=== PATIENT | male | born 1965 | race Caucasian/White ===

== ENCOUNTER 2017-02-27 12:46 | Emergency (ER) | payer OTHER ==
[~2017-02-27] VITALS: Ht 167.6 cm; Wt 129.6 kg
[~2017-02-27 12:46] MED LIST: CHOL10008 PO; IMI25 PO; LISI40TA PO; ONDA4TAB6 PO; SULF1TAB35 PO; SUMA4PEN SQ; TRAM-14 PO
[2017-02-27 12:50] VITALS: BP 148/83; PULSE 78; RESP 16; O2SAT 96
--- NOTE | 2017-02-27 14:54 | DRSVH ---
PROCEDURE: X-RAY LEFT FOOT COMPLETE, MINIMUM THREE VIEWS ([id number]) INDICATIONS: pain TECHNIQUE: 3 views of the foot were acquired. COMPARISON: None. FINDINGS: Bones: No fractures or dislocations. No suspicious bony lesions. Soft tissues: No tibiotalar joint effusion. Achilles tendon appears normal. IMPRESSION: No acute fracture. No osseous lesion. If clinical suspicion and/or symptoms persist, fur ther assessment with repeat plainfilms, or advanced imaging (e.g., CT, MRI, or bone scan) may be help ful for further assessment. Dictated by: Evangelina Henriquez M.D. on 02/27/2017 at 14:52 Approved by: Evangelina Henriquez M.D. on 02/27/2017 at 14:52
[2017-02-27 15:00] VITALS: BP 152/93; PULSE 71; O2SAT 96
[2017-02-27 15:13] LABS: BASOPHILS % (AUTO) 0.5 % (0-3); EOSINOPHILS % (AUTO) 2.6 % (0-5); MONOCYTES % (AUTO) 14.8 % (4-12); Mean Corpuscular Hemoglobin 29.9 pg (27.0-35.0); Mean Corpuscular Volume 87.2 fL (81-100); NEUTROPHILS % (AUTO) 52.8 % (40-74); Platelet Count 225 bil/L (150-400)
[2017-02-27 15:29] LABS: ERYTHROCYTE SEDIMENTATION RATE 3 mm/hr (0-30)
[2017-02-27] MEDS ORDERED: CEPH500T PO (16:11)
--- NOTE | 2017-02-27 16:11 | DRSVH ---
PROCEDURE: US EXTREMITY SONOGRAM LIMITED ([id number]) INDICATIONS: ro FB Left foot TECHNIQUE: Real-time scanning was performed of the left foot, with image documentation. COMPARISON: None. FINDINGS: Limited evaluation demonstrates no evidence of foreign body. IMPRESSION: No evidence of foreign body. Dictated by: Evangelina Henriquez M.D. on 02/27/2017 at 16:09 Approved by: Evangelina Henriquez M.D. on 02/27/2017 at 16:09
[2017-02-27] MEDS ORDERED: HYDR-4003 PO (16:12)
--- NOTE | 2017-02-27 16:25 | ED.REPORT ---
HPI-Extremity Problem Lower Date of Service February 27, 2017 ED Provider: Yoel Woodard MD A 51 year old male with a history of hypertension, UTI and anxiety presents to the ED complaining of left foot pain. The pt was seen eight weeks ago in [place] for a wound on his left foot. A splinter was removed and the pt was discharged. The wound drained a small amount of purulent material two days later but seemed to resolve after that. The pain returned two weeks later and he was seen again in the [place] ED. A CT scan and x-ray were taken and did not indicate infection. The pt was not placed on antibiotics but had minimal drainage again. The area became painful, red, and swollen again last night and these symptoms have persisted since. The pt denies fever. He has not seen a tableau report developer to address his symptoms. Nursing Notes Stated Complaint: LEFT FOOT Chief Complaint: Extremity Trauma Nursing Notes Reviewed: Yes ([employer], [address] not reconciled) Allergies: Coded Allergies: ciprofloxacin (Verified Adverse Reaction, Severe, tendinitis, 02/17/16) citalopram (Verified Adverse Reaction, Severe, burning skin and paranoia, 02/17/16) Scheduled Cephalexin (Cephalexin) 500 Mg Tablet 500 MG PO QID Lisinopril (Lisinopril) 40 Mg Tablet 40 MG PO DAILY Sulfamethoxazole/Trimeth 800-160 mg (Bactrim DS 800-160 mg) 1 Each Tablet 1 TABLET PO BID Scheduled PRN Hydrocodone-Acetaminophen 5-325 mg (Hydrocodone-Acetaminophen 5-325 mg) 1 Each Tablet 1-2 TABLET PO Q6H PRN PRN For Pain Ondansetron (Zofran) 4 Mg Tablet 4 MG PO Q4H PRN PRN For Nausea Sumatriptan (Imitrex) 25 Mg Tablet 50 MG PO PRN PRN PRN Headache Sumatriptan Succinate (Imitrex) 4 Mg/0.5 Ml Pen.injctr 4 MG SQ PRN PRN PRN For Headache MR X1 Tramadol (Ultram) 50 Mg Tablet 50 MG PO Q6 PRN PRN For Mild Pain Miscellaneous Medications Cholecalciferol (Vitamin D3) (Vitamin D3) 1,000 Unit Tab.chew 1,000 UNIT PO General Time Seen by MD: 14:28 Chief Complaint Other (Left foot pain) Hx Obtained From: Patient Arrived By: Walk-in Onset Occurred: More than a week ago... Recent Healthcare: No recent hospitalization, Recent doctor visit Similar Sx Previous: Yes Past Medical History Past Medical History Sigmoid diverticulitis February 2015 H/o "prostatic urethral lesions" by Dr. Cristina, surgery on 06/05/2014, Lesions were negative for malignancy h/o Prostatitis treated with prolonged course of antibiotics history of sepsis and pyuria with hospital admission in 2013 Reports: Hypertension Reports: Depression, Migraines Past Surgical History C5 C7 Disk replacement Wrist surgery L shoulder Right shoulder Ankle surg Cystoscopy hernia surgery Reports: Knee replacement Family History Negative family history specifically denies inflammatory bowel disease in family Other family members are not sick. no other diarrheal illness in immediate family Smoking History Never Smoker Social History Alcohol Use: "Social" Drug Use: Denies drug use Other Social History: Good social support, Local resident Occupation mechanic driver Ambulatory Status Independent Review of Systems Review of Systems Note: area of left foot swollen and red intermittent discharge from left foot Constitutional: Denies: Fever Musculoskeletal: Reports: Extremity pain (left foot), Denies: Back pain Skin: Denies Rash Complete sys rev & neg: except as marked. Respiratory: Denies: Non-productive cough, Shortness of breath Physical Exam Initial Vital Signs Vital Signs (First) Date Time Temp Pulse Resp B/P Pulse Ox O2 Delivery O2 Flow Rate FiO2 02/27/17 12:50 36.4 78 16 148/83 96 Room Air Initial VS: Reviewed, Vital signs normal Lower Extremity / Pelvis / MS: Atraumatic, Full range of motion Ankle / Foot: Full range of motion small punctate area of healed wound no redness, swelling, fluctuance, warmth, or palpable foreign body strong PT pulses no purulence or clinical findings of infection General/Constitutional: Awake, Alert Respiratory / Chest: Atraumatic, Breath sounds NL, Breath sounds = bilat, No respiratory distress Cardiovascular: Heart rate NL, Regular rhythm, Heart sounds NL Skin: Color NL, Warm, Dry Neurologic: Oriented X3, Speech NL, No motor deficits, No sensory deficits Head / Eyes: Atraumatic, Normocephalic, PERRL, EOMI ENT: Atraumatic, Airway patent, Mucous membranes moist Neck: Atraumatic, Supple, Full range of motion Abdomen: Atraumatic, Soft, Non-tender Back: Atraumatic, Full range of motion Upper Extremity / MS: Atraumatic, Full range of motion Psychiatric: Affect NL, Mood NL Interpretation & Diagnostics Interpretation & Diagnostics: US Extremity Sonogram: IMPRESSION: No evidence of foreign body. Dictated by: Evangelina Henriquez M.D. on 02/27/2017 at 16:09 Approved by: Evangelina Henriquez M.D. on 02/27/2017 at 16:09 Lab Results Interpretation Result Diagram: 02/27/17 1505 02/27/17 1505 Test 02/27/17 15:05 White Blood Count 5.9th/mm3 (3.8-10.1) Red Blood Count 5.15mil/mm3 (4.40-5.80) Hemoglobin 15.4g/dL (13.8-17.2) Hematocrit 44.9% (41.0-50.0) Mean Corpuscular Volume 87.2fL (81-100) Mean Corpuscular Hemoglobin 29.9pg (27.0-35.0) Mean Corpuscular Hemoglobin Concent 34.3% (32.0-37.0) Red Cell Distribution Width 14.0% (12.3-15.4) Platelet Count 225bil/L (150-400) Neutrophils (%) (Auto) 52.8% (40-74) Lymphocytes (%) (Auto) 29.0% (14-46) Monocytes (%) (Auto) 14.8% (4-12) Eosinophils (%) (Auto) 2.6% (0-5) Basophils (%) (Auto) 0.5% (0-3) Erythrocyte Sedimentation Rate 3mm/hr (0-30) Sodium Level 139mEq/L (134-144) Potassium Level 3.8mEq/L (3.5-5.2) Chloride Level 104mEq/L (97-108) Carbon Dioxide Level 21mmol/L (18-29) Blood Urea Nitrogen 25mg/dL (6-24) Creatinine 0.71mg/dL (0.76-1.27) Estimat Glomerular Filtration Rate 124mL/min (>59) Glucose Level 107mg/dL (60-99) Lactic Acid Level 1.2mmol/L (0.4-2.0) Calcium Level 9.1mg/dL (8.5-10.1) Total Bilirubin 0.3mg/dL (0.0-1.2) Aspartate Amino Transf (AST/SGOT) 27U/L (0-50) Alanine Aminotransferase (ALT/SGPT) 41U/L (0-44) Alkaline Phosphatase 58U/L (25-150) Total Protein 6.4g/dL (6.4-8.4) Albumin 3.6g/dL (3.4-5.0) Lab Results Interpretation: CBC normal CMP normal X-Ray Interpretation Xray Interpretation: IMPRESSION: No acute fracture. No osseous lesion. If clinical suspicion and/or symptoms persist, further assessment with repeat plainfilms, or advanced imaging (e.g., CT, MRI, or bone scan) may be helpful for further assessment. Dictated by: Evangelina Henriquez M.D. on 02/27/2017 at 14:52 Approved by: Evangelina Henriquez M.D. on 02/27/2017 at 14:52 X-Ray Ordered: Foot left Interpretation / Wet Read by: Interpret - Radiologist Re-Eval/Medical Decision Med Decision/Clinical Course This is a 51-year-old generally healthy male who is not diabetic and presents with a complaint that sounds like a developing an infection of the left foot. He reports that in January he developed foot pain and was seen at [facility], or spots that are retained foreign body that was then removed by incision and drainage. He then had some continued pain and return where he had CT imaging of the foot that was negative for foreign body or inflammation. He reports things got better. However he then states that on he expressed a small amount of purulence from this otherwise healing wound but was doing okay, and then last night it started to hurt more and became increasingly uncomfortable to return to the emergency room today. He denies fevers chills or systemic symptoms. On exam however while he described signs and sounds certainly suspicious for developing infection in her retained foreign body-is physical exam is quite reassuring and disproportionately benign. The wound where he had the initial incision is mostly healed, there is no erythema, no warmth, reports mild tenderness. There is no fluctuance I do not appreciate overt signs of foreign body. The foot is neurovascularly intact and the rest of exam is normal. Labs were obtained and were normal. Cultures were initially ordered, but subsequent canceled given is not a diabetic, not febrile. Plain radiographs are obtained were negative, and an ultrasound was obtained and no foreign body, or inflammatory changes or abscess were evident. Overall the patient with foot pain and a history strongly concerning for an infection, but what I see in the emergency department is a physical exam and laboratory and radiographic findings that are not demonstrating clear signs of a retained foreign body or abscess. So discussed the case with psychiatry. At this point given the patient's benign appearance the plan is empiric oral antibiotics with cephalexin, and close follow-up with tableau report developer to see how he is responding. Patient is discharged from a course of cephalexin and return precautions reviewed. Source of Hx: Old records Re-Evaluation/Progress : Time of Eval: 16:22 Patient Status: Condition improved Re-Evaluation/Progress Note: Pt rechecked, who is comfortable. The diagnosis and plan for discharge are discussed. The pt understands and agrees with the plan. All questions are addressed at this time. Consultation : Referral / Consult Name: Juan Ramon Anderson DPM Call Returned at: 15:55 Sequins Stringer: Agrees with eval, Agrees with plan Note: [facility] regarding pt's case. Dr. Anderson agrees with the evaluation and plan. Counseled Regarding: Diagnosis, Lab results, Need for follow-up, When/why to return to ED Discharge & Departure Impression: Primary Impression: Left foot pain Disposition: Home Discharge Condition All VS Reviewed: Yes Condition: Stable Additional Instructions: 1. The exact cause of the left foot pain remains a bit unclear. Your symptoms and history are extremely concerning for the possibility of a remaining, or recurrent, infection and/or foreign body. 2. However on your examine the emergency department-there are no visible or palpable hard signs of infection. The ultrasound did not reveal any radiographic findings of either infection, abscess, or retained foreign body. Your blood work was normal. 3. At this point, based on your symptoms which are highly concerning, the plan is empiric treatment with some antibiotics. Take cephalexin 500 mg 4 times a day for the next 7 days. 4. I have discussed your case with the tableau report developer, and want to call the office tomorrow to schedule appointment for recheck this week. We want to see how he responded to the antibiotics as part of helping the side where additional evaluation or management baby warranted. 5. She developed fever, increasing redness, swelling, pain or drainage-return to the emergency department. Referrals: Juan Ramon Anderson DPM 3 to 4 Days Scribe Attestation Portions of this note were transcribed by Chloe Preston. I, Dr. Woodard personally performed the history, physical exam and medical decision-making; I reviewed and confirmed the accuracy of the information in the transcribed note. Signed by: Tunde Gatica, 02/27/2017 and 1713. copies to: Juan Ramon Anderson DPM, Matthew F MD February 27, 2017 16:25 CHLOE PRESTON February 27, 2017 16:34
[2017-02-27 17:17] VITALS: BP 158/94; PULSE 72; O2SAT 95
== END 2017-02-27 17:18 | disposition home or self-care (01) ==
LOC: SED 12:46
DX: M79.672 Pain in left foot (principal); W45.8XXA Other foreign body or object entering through skin, initial encounter; Y92.9 Unspecified place or not applicable; Y93.89 Activity, other specified; Y99.8 Other external cause status; I10 Essential (primary) hypertension; F32.9 Major depressive disorder, single episode, unspecified; G43.909 Migraine, unspecified, not intractable, without status migrainosus; F41.9 Anxiety disorder, unspecified; Z87.440 Personal history of urinary (tract) infections; Z88.1 Allergy status to other antibiotic agents; Z88.8 Allergy status to other drugs, medicaments and biological substances

== ENCOUNTER 2017-03-22 10:00 | Inpatient (IN) | payer OTHER ==
[~2017-03-22] VITALS: Ht 167.6 cm; Wt 130.1 kg
[~2017-03-22 10:00] MED LIST changes: +CEPH500T PO; +HYDR-4003 PO
[2017-03-22 10:03] VITALS: BP 129/83; PULSE 110; RESP 22; O2SAT 99
--- NOTE | 2017-03-22 10:21 | ED.REPORT ---
HPI-General Illness Date of Service March 22, 2017 ED Provider: Shaun Troncoso DO Patient is a 51 year old male with a history of hypertension, prostatitis, cystitis and sepsis who presents to the ED complaining of chest pain onset this morning. Associated symptoms include body aches, subjective fever, chills, flank pain and increased urinary frequency but with decreased output. He denies dysuria, rectal bleeding, diaphoresis, cough and incontinence. Patient describes the pain as a "burning through his chest and lungs". Nursing Notes Stated Complaint: CHEST/BODY PAIN Chief Complaint: General Complaint Nursing Notes Reviewed: Yes Allergies: Coded Allergies: ciprofloxacin (Verified Adverse Reaction, Severe, tendinitis, 02/17/16) citalopram (Verified Adverse Reaction, Severe, burning skin and paranoia, 02/17/16) Scheduled Cephalexin (Cephalexin) 500 Mg Tablet 500 MG PO QID Lisinopril (Lisinopril) 40 Mg Tablet 40 MG PO DAILY Sulfamethoxazole/Trimeth 800-160 mg (Bactrim DS 800-160 mg) 1 Each Tablet 1 TABLET PO BID Scheduled PRN Hydrocodone-Acetaminophen 5-325 mg (Hydrocodone-Acetaminophen 5-325 mg) 1 Each Tablet 1-2 TABLET PO Q6H PRN PRN For Pain Ondansetron (Zofran) 4 Mg Tablet 4 MG PO Q4H PRN PRN For Nausea Sumatriptan (Imitrex) 25 Mg Tablet 50 MG PO PRN PRN PRN Headache Sumatriptan Succinate (Imitrex) 4 Mg/0.5 Ml Pen.injctr 4 MG SQ PRN PRN PRN For Headache MR X1 Tramadol (Ultram) 50 Mg Tablet 50 MG PO Q6 PRN PRN For Mild Pain Miscellaneous Medications Cholecalciferol (Vitamin D3) (Vitamin D3) 1,000 Unit Tab.chew 1,000 UNIT PO General Time Seen by MD: 10:20 Chief Complaint Chest pain Hx Obtained From: Patient Sudden in Onset?: Yes Onset Occurred: 1 - 4 hours ago Symptom Duration: Since onset Location: : Chest Quality: Burning Radiation: : Does not radiate Recent Healthcare: No recent hospitalization, Recent doctor visit Similar Sx Previous: No Past Medical History Past Medical History Sigmoid diverticulitis February 2015 H/o "prostatic urethral lesions" by Dr. Cristina, surgery on 06/05/2014, Lesions were negative for malignancy h/o Prostatitis treated with prolonged course of antibiotics history of sepsis and pyuria with hospital admission in 2014 Reports: Hypertension Reports: Depression, Migraines Past Surgical History C5 C7 Disk replacement Wrist surgery L shoulder Right shoulder Ankle surg Cystoscopy hernia surgery Reports: Knee replacement Family History Negative family history specifically denies inflammatory bowel disease in family Other family members are not sick. no other diarrheal illness in immediate family Smoking History Never Smoker Social History Alcohol Use: "Social" Drug Use: Denies drug use Other Social History: Good social support, , Local resident Occupation boom truck driver Ambulatory Status Independent Review of Systems Full Review of Systems Constitutional: Reports: Chills, Fever (subjective) Respiratory: Denies: Non-productive cough, Shortness of breath Cardiovascular: Reports: Chest pain Male: Reports Flank pain, Reports Urinary frequency, Reports Urination decreased, Denies Incontinence Musculoskeletal: Reports: Joint pain Complete sys rev & neg: except as marked. Physical Exam Vital Signs Vital Signs Date Time Temp Pulse Resp B/P Pulse Ox O2 Delivery O2 Flow Rate FiO2 03/22/17 12:08 37.8 92 22 122/74 95 Room Air 03/22/17 10:03 36.6 110 22 129/83 99 Initial VS: Reviewed General/Constitutional: Awake, Alert Distress / Hydration: Positive: Distress moderate Appearance / Presentation: Positive: Obese Head / Eyes: Atraumatic, Normocephalic, PERRL, EOMI Respiratory / Chest: Atraumatic, Breath sounds NL, Breath sounds = bilat, No respiratory distress Cardiovascular: Regular rhythm, Heart sounds NL Heart Rate / Rhythm: Positive: Tachycardia Abdomen: Atraumatic, Soft, Non-tender BACK: bilateral CVA tenderness Upper Extremities Upper Extremity / MS: Atraumatic, Full range of motion Skin: Atraumatic, Color NL, No rash, Warm, Dry Neurologic: Oriented X3, Speech NL, No motor deficits, No sensory deficits Psychiatric: Affect NL, Mood NL Interpretation & Diagnostics Lab Results Interpretation Result Diagram: 03/22/17 1055 03/22/17 1055 Test 03/22/17 10:07 03/22/17 10:55 Urine Color Straw (YELLOW) Urine Appearance Slightly cloudy Urine pH 6.5 (5.0-8.0) Urine Specific [place] 1.015 (1.003-1.035) Urine Protein Negativemg/dL (NEG,TRACE) Urine Glucose (UA) Negativemg/dL (NEGATIVE) Urine Ketones Negativemg/dL (NEGATIVE) Urine Occult Blood Moderate (NEGATIVE) Urine Nitrite Negative (NEGATIVE) Urine Bilirubin Negative (NEGATIVE) Urine Urobilinogen Normalmg/dL (NORMAL) Urine Leukocyte Esterase Moderate (NEGATIVE) Urine RBC 11-50/hpf (0-2) Urine WBC 11-50/hpf (0-5) Urine Epithelial Cells Occasional/hpf (NONE-MOD) Urine Crystals None seen (NONE SEEN) Urine Bacteria Few/hpf (NONE-FEW) Urine Hyaline Casts None/lpf (NONE) Urine Granular Casts None seen (NONE SEEN) Urine Waxy Casts None seen (NONE SEEN) Urine Red Blood Cell Casts None seen (NONE SEEN) Urine White Blood Cell Casts None seen (NONE SEEN) Urine Mucus None seen (None Seen) Urine Trichomonas None seen (NONE SEEN) Urine Yeast None (NONE SEEN) Urinalysis Comment None Urine Culture Reflexed Indicated White Blood Count 17.9th/mm3 (3.8-10.1) Red Blood Count 5.40mil/mm3 (4.40-5.80) Hemoglobin 16.0g/dL (13.8-17.2) Hematocrit 46.9% (41.0-50.0) Mean Corpuscular Volume 86.9fL (81-100) Mean Corpuscular Hemoglobin 29.6pg (27.0-35.0) Mean Corpuscular Hemoglobin Concent 34.1% (32.0-37.0) Red Cell Distribution Width 13.7% (12.3-15.4) Platelet Count 205bil/L (150-400) Neutrophils (%) (Auto) 87.3% (40-74) Lymphocytes (%) (Auto) 4.3% (14-46) Monocytes (%) (Auto) 7.6% (4-12) Eosinophils (%) (Auto) 0.4% (0-5) Basophils (%) (Auto) 0.1% (0-3) Sodium Level 139mEq/L (134-144) Potassium Level 4.6mEq/L (3.5-5.2) Chloride Level 102mEq/L (97-108) Carbon Dioxide Level 19mmol/L (18-29) Blood Urea Nitrogen 18mg/dL (6-24) Creatinine 0.89mg/dL (0.76-1.27) Estimat Glomerular Filtration Rate 95mL/min (>59) Glucose Level 104mg/dL (60-99) Lactic Acid Level 1.9mmol/L (0.4-2.0) Calcium Level 9.4mg/dL (8.5-10.1) Magnesium Level 1.8mg/dL (1.6-2.6) Total Bilirubin 0.7mg/dL (0.0-1.2) Aspartate Amino Transf (AST/SGOT) 26U/L (0-50) Alanine Aminotransferase (ALT/SGPT) 37U/L (0-44) Alkaline Phosphatase 64U/L (25-150) Troponin T 0.010ug/L (0.0-0.011) Total Protein 7.1g/dL (6.4-8.4) Albumin 3.9g/dL (3.4-5.0) Procalcitonin 0.07ng/mL (0.00-0.08) ECG Interpretation ECG Interpretation: sinus tachycardia, rate 100 Time: 10:48 Interpreted by: ED physician Re-Eval/Medical Decision Med Decision/Clinical Course Sepsis and UTI likely due to prostatitis. IV Rocephin given. Patient will be admitted. Source of Hx: Old records Time of Eval: 10:51 Re-Evaluation/Progress Note: Discussed lab results and plan for further treatment. Time of Eval: 11:25 Re-Evaluation/Progress Note: Discussed plan for admit. The patient understands and agrees to the plan for admit. All questions were addressed. Consultation : Referral / Consult Name: Radha Lowery MD Consulted With: Hospitalist Call Returned at: 12:13 Neonatal Specialist: Agrees with eval, Agrees with plan, Accepts admit Counseled Regarding: Diagnosis, Lab results, Need for admission Discharge & Departure Primary Impression: Sepsis Sepsis type: sepsis due to unspecified organism Qualified Code: A41.9 - Sepsis, unspecified organism Additional Impressions: Prostatitis Prostatitis type: unspecified Qualified Code: N41.9 - Inflammatory disease of prostate, unspecified UTI (urinary tract infection) Urinary tract infection type: site unspecified Hematuria presence: without hematuria Qualified Code: N39.0 - Urinary tract infection, site not specified Disposition: ADMITTED TO HOSPITAL Discharge Condition All VS Reviewed: Yes Condition: Stable Referrals: Aranza Durham MD (PCP) Tunde Attestation Portions of this note were transcribed by Dee Lennon. I, Dr. Bhargav Beatty personally performed the history, physical exam and medical decision-making; I reviewed and confirmed the accuracy of the information in the transcribed note. Signed by: Tunde Vargas, 03/22/17 and 1130 copies to: Aranza Durham MD, Timothy S DO March 22, 2017 10:21 Jackie Lennon March 22, 2017 10:34
[2017-03-22] MEDS ORDERED: 0.9% Sodium Chloride 1,000 ML IV ONE (10:27)
[2017-03-22] MEDS ORDERED: 0.9% Sodium Chloride 1,000 ML IV PRN (10:27)
[2017-03-22 10:38] LABS: APPEARANCE,URINE SLIGHTLY CLOUDY (CLEAR,HAZY); COLOR,URINE STRAW (YELLOW); PH,URINE 6.5 (5.0-8.0)
[2017-03-22 10:39] LABS: OCCULT BLOOD,URINE MODERATE (NEGATIVE); UROBILINOGEN,URINE NORMAL (NORMAL)
[2017-03-22] MEDS ORDERED: cefTRIAXone Inj 2,000 MG in Dextrose 5% Minibag Plus 50 ML IV ONE (10:45)
[2017-03-22 11:08] LABS: BASOPHILS % (AUTO) 0.1 % (0-3); EOSINOPHILS % (AUTO) 0.4 % (0-5); MONOCYTES % (AUTO) 7.6 % (4-12); Mean Corpuscular Hemoglobin 29.6 pg (27.0-35.0); Mean Corpuscular Volume 86.9 fL (81-100); NEUTROPHILS % (AUTO) 87.3 % (40-74); Platelet Count 205 bil/L (150-400)
[2017-03-22] MEDS ORDERED: Ondansetron 2 mg/mL 2 mL Inj IVPUSH PRN ×3 (11:15→14:15)
[2017-03-22 11:57] LABS: TROPONIN T 0.01 ug/L (0.0-0.011)
[2017-03-22 12:08] VITALS: BP 122/74; PULSE 92; RESP 22; O2SAT 95
[2017-03-22 12:08] LABS: Magnesium 1.8 mg/dL (1.6-2.6)
[2017-03-22] MEDS ORDERED: 0.9% Sodium Chloride 1,000 ML IV SCH (12:30)
[2017-03-22] MEDS ORDERED: Alum-Mag Hydrox-Simeth 30 mL Suspension PO PRN ×2 (12:30→14:15)
--- NOTE | 2017-03-22 13:00 | NUR ---
PVR Bladder scan revealed 100mL. Pt denies discomfort during exam. Resting comfortably. Addendum: 03/22/17 at 1803 by FARNAZ LR RN 2nd PVR checked @ 1800, 120mL remaining.
[2017-03-22 13:15] VITALS: BP 136/85; PULSE 96; RESP 17; O2SAT 92
--- NOTE | 2017-03-22 14:10 | NUR ---
[place] [facility] [id number] A&O pt arrived on wc at 1215. IVF infusing. Pt c/o pain-MD to see pt still. Admit to be complete by primary RN. at bedside. Pt oriented to room and facility. Denies having questions. VSS. Bed in low position, upper rails up, call light in reach. Will continue to monitor.
[2017-03-22] MEDS ORDERED: Polyethylene Glycol (PEG) 17 Gm Powder PO PRN (14:15)
--- NOTE | 2017-03-22 14:31 | PCM.HPMED ---
Subjective Date of Service March 22, 2017 Primary Provider: Admitting Physician: Radha Lowery MD Primary Care Physician: Aranza Durham MD Attending Physician: Radha Lowery MD Chief Complaint: Hurt all over History of Present Illness: Yesterday he felt fine. During the night he had to get up 3 or 4 times to urinate instead of once or twice but did not note dysuria. This morning when he awoke he hurt all over. Even though the skin of his face and body was hot she felt cold but did not take his temperature. He also notes burning chest which feels like something is pressing on it. This was present when he awoke. It is worse in the right lateral chest with deep breaths and it is better when he lays on his left side. He also has mild generalized headache, which is not his migraine, and feels slightly lightheaded. He was hospitalized in July 2016 for Escherichia coli UTI, sensitive to all but ampicillin. PSA was elevated at that time and he says he has seen a urologist twice since then, apparently Dr. Ortiz, and his PSA went back to normal. He is due soon for a another urology follow-up. Review of Systems: Complete review of systems is unremarkable except as in history of present illness Allergies Coded Allergies: ciprofloxacin (Verified Adverse Reaction, Severe, tendinitis, 02/17/16) citalopram (Verified Adverse Reaction, Severe, burning skin and paranoia, 02/17/16) Home Medications Lisinopril 40 qd Vit D3 1000 BID imitrex injection prn and also some other oral prn migraine med - hasn't needed either for about a year PMH Hypertension Migraines Depression which she says is occasional Sigmoid diverticulitis in February 2015 UTI in July 2016 felt related to prostatitis Urology evaluation in 2013 revealed "prostatic urethral lesions" and some inflammatory bladder changes Nephrolithiasis Surgical History C5 to C7 disc surgery Wrist surgery bilateral carpal tunnel release Bilateral shoulder surgery Ankle surgery Cystoscopy as noted above Hernia surgery knee replacement Family History Says his parents and all siblings have hypertension. Mother had "open heart surgery" twice and at age 76 although he is not sure of the cause. He was estranged from his father and not sure of his cause of . Social History Hx Alcohol Use: Yes (very occasionally) Hx Substance Use: No Hx Tobacco Use: No Smoking Status: Never Smoker Additional Information Lives with his , 26 years Exam Vital Signs Vital Sign - Last Date Time Temp Pulse Resp B/P Pulse Ox O2 Delivery O2 Flow Rate FiO2 03/22/17 13:03 37.8 92 22 122/74 95 Room Air Exam General: Alert and oriented, no acute distress HEENT: Unremarkable Neck: Thick but no apparent JVD Heart: Regular Lungs: Clear Abdomen: Soft, bowel sounds present, mild right upper quadrant tenderness Back: Mild tenderness across mid back, not clearly CVA tenderness Extremities: No pedal edema Neuro: No apparent deficit Lab and Diagnostics Result Diagram: 03/22/17 1055 03/22/17 1055 Assessment & Plan # UTI, possibly related to prostatitis as it was in the past - Ceftriaxone IV pending urine culture results - IV fluid with normal saline - Renal ultrasound - PSA - Check postvoid residual - discussed with urology, as long as he improves as expected with antibiotics Dr. Cristina feels it would be more beneficial to do an outpatient follow-up about a week after discharge than to do a hospital consultation # Hypertension - Blood pressure stable, okay to continue lisinopril Radha Lowery MD March 22, 2017 14:31
[2017-03-22] MEDS: HYDROcodone-APAP 5-325 mg Tablet PO PRN ×2 (14:51→20:23)
[2017-03-22] MEDS: 0.9% Sodium Chloride 1,000 ML IV SCH ×2 (15:17→20:23)
[2017-03-22] MEDS ORDERED: HYDROmorphone 1 mg/mL Inj IVPUSH PRN (16:25)
[2017-03-22 17:26] VITALS: BP 120/69; PULSE 94; RESP 17; O2SAT 92
[2017-03-22] MEDS ORDERED: _HYDROcodone/APAP 5-325 mg Tablet PO PRN (18:15)
[2017-03-22 21:52] VITALS: BP 123/72; PULSE 79; RESP 18; O2SAT 95
--- NOTE | 2017-03-23 04:39 | NUR ---
Pain: Pt c/o RENAE 04/02, medication administered; effective. Pt denies any other pain and SOB. brought Cpap in, pt using along with cont pulse ox due to pt receiving narcotics with MIO. Pt slept most of the night, pleasant and cooperative with care.
[2017-03-23 05:28] VITALS: BP 123/70; PULSE 60; RESP 20; O2SAT 96
[2017-03-23] MEDS: HYDROcodone-APAP 5-325 mg Tablet PO PRN ×2 (06:43→12:03)
[2017-03-23] MEDS: 0.9% Sodium Chloride 1,000 ML IV SCH (06:43)
[2017-03-23] MEDS: Lisinopril 40 Tablet PO SCH (07:48)
[2017-03-23] MEDS: cefTRIAXone Inj 2,000 MG in Dextrose 5% Minibag Plus 50 ML IV SCH (07:49)
--- NOTE | 2017-03-23 11:13 | DRSVH ---
PROCEDURE: US RENAL SONOGRAM INDICATIONS: uti, hx nephrolithiasis TECHNIQUE: Real-time scanning was performed of the kidneys and bladder, with image documentation. COMPARISON: [facility], CT, CT KUB, 07/28/2016, 20:47. [facility], US, US R ENAL, 07/29/2016, 9:40. FINDINGS: Kidneys: Kidneys are normal in size. Right kidney measures 11.3 cm long; left kidney measures 12.3 cm long. Right renal cortical thickness is 1.7 cm; left renal cortical thickness is 1.8 cm. Renal c ortical echotexture is normal. No hydronephrosis or nephrolithiasis. No suspicious solid mass lesio ns. Complex cyst involving the midpole posteriorly no significant change measure 1.8 x 1.6 x 1.6 cm. Complex cyst also seen involving the superior pole of the left kidney measuring 2.0 x 1.5 x 1.6 cm. Bladder: Pre-void bladder volume is 155 mL. Post-void residual is 14 mL. Pre-void images demonstra te no intraluminal masses or stones. On pre-void images, bilateral ureteral jets are noted with colo r Doppler interrogation. (Of note, ureteral jets may not be detectable in up to 25% of cases due to insufficient differences in specific gravity between ureteral and bladder urine). Miscellaneous: No free pelvic fluid. IMPRESSION: 1. 2 complex cysts involving the left kidney (Bosnial 2f), of which the midpole cyst is not significa ntly changed from prior examination and the superior pole cyst appears new from prior exam. Recommen d continued sonographic surveillance. Dictated by: Darrell JAMES Interpreted: Oliver Garzon MD on 03/23/2017 at 11:10 Transcribed by: NANCY on 03/23/2017 at 11:13 Approved by: Oliver Garzon M.D. on 03/23/2017 at 16:21
--- NOTE | 2017-03-23 12:06 | PCM.PNMED ---
Subjective Date of Service March 23, 2017 Subjective Still total body aches although some improved, also still some mild generalized headache. Exam Vital Signs Vital Sign - Last Date Time Temp Pulse Resp B/P Pulse Ox O2 Delivery O2 Flow Rate FiO2 03/23/17 08:53 CPAP/BIPAP 03/23/17 05:28 37.9 60 20 123/70 96 Intake and Output 03/22/17 03/22/17 03/23/17 Cumulative From/Thru 15:00 23:00 07:00 03/22/17 10:03 - 03/23/17 06:55 Intake Total 1167 ml 1382 ml 2549 ml Output Total 655 ml 1200 ml 575 ml 2430 ml Balance -655 ml -33 ml 807 ml 119 ml Intake Oral 640 ml 200 ml 840 ml IV Total 527 ml 1182 ml 1709 ml Output Urine Total 655 ml 1200 ml 575 ml 2430 ml # Voids 5 5 # Bowel Movements 0 0 Exam General: Alert and oriented, no acute distress Heart: Regular Lungs: Clear Abdomen: Soft, non-tender Extremities: No pedal edema IVs and Medications Medications Reviewed: Medications were reviewed in detail Lab and Diagnostics Result Diagram: 03/22/17 1055 03/22/17 1055 Assessment & Plan 51 yo male with past hx sepsis from UTI presented to the ED with total body pain , found to be febrile with leukocytosis and UA suggesting UTI # UTI, possibly related to prostatitis as it was in the past - Ceftriaxone IV pending urine culture results (prelim with 50-100 K e coli) - Will DC IVF - Renal ultrasound - with 2 complex cysts (one new, one stable) - continued u/s surveillance recommended, advised pt of this - PSA normal - postvoid residual by bladder scan reported to be 100 cc (and then 14 during renal u/s) - discussed with urology, as long as he improves as expected with antibiotics Dr. Cristina feels it would be more beneficial to do an outpatient follow-up about a week after discharge than to do a hospital consultation (he already sees this urology group and had just gotten a letter that he was due for follow up) # Hypertension - Blood pressure stable, okay to continue lisinopril VTE Mechanical Devices: Venous Foot Pump Radha Lowery MD March 23, 2017 12:06
--- NOTE | 2017-03-23 13:04 | NUR ---
Social Work-screening: Data:EMR Reviewed. Pt is a 51 y/o male who was admitted on 03/22/17 for sepsis per H&P. Pt's insurance is [employer] and PCP is Aranza Durham MD. EMR reviewed. Pt's readmission score is 1. SW met with pt to discuss discharge planning, SW role explained. Pt resides at home with his in [place] where he remains independent with ADLs. Pt drives and does not use any DME. Pt confirms he has completed DPOA/ advanced directive, SW encouraged a copy to be brought in. Pt's to provide transport home when medically stable. No anticipated discharge needs. SW will continue to follow if needs arise. Assessment:Pt who is independent at baseline. Plan:Pt to discharge home when medically stable via POV. No anticipated discharge needs. SW will continue to follow if needs arise. LIZETH Hsu
[2017-03-23 13:36] VITALS: BP 131/71; PULSE 69; RESP 18; O2SAT 97
--- NOTE | 2017-03-23 15:31 | NUR ---
Pain/mobility pt c/o headache earlier in shift, vicodin effective for pain relief. Indep in room. Reports possible DC tomorrow. Addendum: 03/23/17 at 1655 by MARNI BOONE RN pt c/o low back pain. Notified has rx he can take, doesn't want any at this time. Enc to ambulate in amaro several times, states when comes will do this. Addendum: 03/23/17 at 1744 by MARNI BOONE RN Pt ambulated loop of [facility], reported initial weakness but tolerated ok. tramadol given for low back pain.
[2017-03-23 21:09] VITALS: BP 129/79; PULSE 67; RESP 18; O2SAT 93
[2017-03-24 04:08] VITALS: BP 113/70; PULSE 65; RESP 18; O2SAT 98
[2017-03-24] MEDS: Lisinopril 40 Tablet PO SCH (08:22)
[2017-03-24] MEDS: cefTRIAXone Inj 2,000 MG in Dextrose 5% Minibag Plus 50 ML IV SCH (08:22)
[2017-03-24 08:54] LABS: BASOPHILS % (AUTO) 0.3 % (0-3); EOSINOPHILS % (AUTO) 2.4 % (0-5); MONOCYTES % (AUTO) 9.9 % (4-12); Mean Corpuscular Volume 87.2 fL (81-100); NEUTROPHILS % (AUTO) 69.8 % (40-74); Platelet Count 190 bil/L (150-400)
--- NOTE | 2017-03-24 12:26 | PCM.DC.MED ---
Discharge Summary Date of Service Mar 24, 2017 Dates of Hospitalization Date of Hospital Admission March 22, 2017 at 12:29 Date of Discharge: Mar 24, 2017 Providers: Admitting Physician: Radha Lowery MD Primary Care Physician: Aranza Durham MD Attending Physician: Radha Lowery MD Diagnosis at Time of Discharge Diagnosis at Time of Discharge # UTI, Recurrent # Complex renal cysts # Hypertension Procedures Other Diagnostics PROCEDURE: US RENAL SONOGRAM INDICATIONS: uti, hx nephrolithiasis TECHNIQUE: Real-time scanning was performed of the kidneys and bladder, with image documentation. COMPARISON: [facility], CT, CT KUB, 07/28/2016, 20:47. [facility], US, US RENAL, 07/29/2016, 9:40. FINDINGS: Kidneys: Kidneys are normal in size. Right kidney measures 11.3 cm long; left kidney measures 12.3 cm long. Right renal cortical thickness is 1.7 cm; left renal cortical thickness is 1.8 cm. Renal cortical echotexture is normal. No hydronephrosis or nephrolithiasis. No suspicious solid mass lesions. Complex cyst involving the midpole posteriorly no significant change measure 1.8 x 1.6 x 1.6 cm. Complex cyst also seen involving the superior pole of the left kidney measuring 2.0 x 1.5 x 1.6 cm. Bladder: Pre-void bladder volume is 155 mL. Post-void residual is 14 mL. Pre- void images demonstrate no intraluminal masses or stones. On pre-void images, bilateral ureteral jets are noted with color Doppler interrogation. (Of note, ureteral jets may not be detectable in up to 25% of cases due to insufficient differences in specific gravity between ureteral and bladder urine). Miscellaneous: No free pelvic fluid. IMPRESSION: 1. 2 complex cysts involving the left kidney (Bosnial 2f), of which the midpole cyst is not significantly changed from prior examination and the superior pole cyst appears new from prior exam. Recommend continued sonographic surveillance. Dictated by: Darrell JAMES Interpreted: Oliver Garzon MD on 03/23/2017 at 11 :10 Transcribed by: NANCY on 03/23/2017 at 11:13 Approved by: Oliver Garzon M.D. on 03/23/2017 at 16:21 Brief History As per admission HPI by admitting physician, "Yesterday he felt fine. During the night he had to get up 3 or 4 times to urinate instead of once or twice but did not note dysuria. This morning when he awoke he hurt all over. Even though the skin of his face and body was hot she felt cold but did not take his temperature.He also notes burning chest which feels like something is pressing on it. This was present when he awoke. It is worse in the right lateral chest with deep breaths and it is better when he lays on his left side. He also has mild generalized headache, which is not his migraine, and feels slightly lightheaded. He was hospitalized in July 2016 for Escherichia coli UTI, sensitive to all but ampicillin. PSA was elevated at that time and he says he has seen a urologist twice since then, apparently Dr. Ortiz, and his PSA went back to normal. He is due soon for a another urology follow-up." Hospital Course # UTI, possibly related to prostatitis as it was in the past - Ceftriaxone IV initiated while pending urine cultures pending - Culture demonstrated hart-sentive E. Coli infection, prompting transition to oral Keflex for 7 additional days on discharge. - PSA - postvoid residual by bladder scan reported to be 100 cc (and then 14 during renal u/s) - discussed with urology, as long as he improves as expected with antibiotics Dr. Cristina feels it would be more beneficial to do an outpatient follow-up about a week after discharge than to do a hospital consultation (he already sees this urology group and had just gotten a letter that he was due for follow up) # Complex renal cysts - Incidental finding noted on Renal ultrasound - with 2 complex cysts (one new, one stable) - Continued u/s surveillance recommended, Pt advised # Hypertension - Blood pressure stable, okay to continue lisinopril Exam Vital Signs (Last) Date Time Temp Pulse Resp B/P Pulse Ox O2 Delivery O2 Flow Rate FiO2 03/24/17 10:33 CPAP/BIPAP 03/24/17 04:08 36.6 65 18 113/70 98 Test 03/22/17 10:07 03/22/17 10:55 03/24/17 08:45 Urine Color Straw (YELLOW) Urine Appearance Slightly cloudy Urine pH 6.5 (5.0-8.0) Urine Specific [place] 1.015 (1.003-1.035) Urine Protein Negativemg/dL (NEG,TRACE) Urine Glucose (UA) Negativemg/dL (NEGATIVE) Urine Ketones Negativemg/dL (NEGATIVE) Urine Occult Blood Moderate (NEGATIVE) Urine Nitrite Negative (NEGATIVE) Urine Bilirubin Negative (NEGATIVE) Urine Urobilinogen Normalmg/dL (NORMAL) Urine Leukocyte Esterase Moderate (NEGATIVE) Urine RBC 11-50/hpf (0-2) Urine WBC 11-50/hpf (0-5) Urine Epithelial Cells Occasional/hpf (NONE-MOD) Urine Crystals None seen (NONE SEEN) Urine Bacteria Few/hpf (NONE-FEW) Urine Hyaline Casts None/lpf (NONE) Urine Granular Casts None seen (NONE SEEN) Urine Waxy Casts None seen (NONE SEEN) Urine Red Blood Cell Casts None seen (NONE SEEN) Urine White Blood Cell Casts None seen (NONE SEEN) Urine Mucus None seen (None Seen) Urine Trichomonas None seen (NONE SEEN) Urine Yeast None (NONE SEEN) Urinalysis Comment None Urine Culture Reflexed Indicated Lactic Acid Level 1.9mmol/L (0.4-2.0) Magnesium Level 1.8mg/dL (1.6-2.6) Total Bilirubin 0.7mg/dL (0.0-1.2) Aspartate Amino Transf (AST/SGOT) 26U/L (0-50) Alanine Aminotransferase (ALT/SGPT) 37U/L (0-44) Alkaline Phosphatase 64U/L (25-150) Troponin T 0.010ug/L (0.0-0.011) Total Protein 7.1g/dL (6.4-8.4) Albumin 3.9g/dL (3.4-5.0) Prostate Specific Antigen 3.2ng/mL (0.0-4.0) Procalcitonin 0.07ng/mL (0.00-0.08) White Blood Count 6.4th/mm3 (3.8-10.1) Red Blood Count 4.94mil/mm3 (4.40-5.80) Hemoglobin 14.8g/dL (13.8-17.2) Hematocrit 43.1% (41.0-50.0) Mean Corpuscular Volume 87.2fL (81-100) Mean Corpuscular Hemoglobin 30.0pg (27.0-35.0) Mean Corpuscular Hemoglobin Concent 34.3% (32.0-37.0) Red Cell Distribution Width 13.8% (12.3-15.4) Platelet Count 190bil/L (150-400) Neutrophils (%) (Auto) 69.8% (40-74) Lymphocytes (%) (Auto) 17.0% (14-46) Monocytes (%) (Auto) 9.9% (4-12) Eosinophils (%) (Auto) 2.4% (0-5) Basophils (%) (Auto) 0.3% (0-3) Sodium Level 142mEq/L (134-144) Potassium Level 4.3mEq/L (3.5-5.2) Chloride Level 104mEq/L (97-108) Carbon Dioxide Level 21mmol/L (18-29) Blood Urea Nitrogen 14mg/dL (6-24) Creatinine 0.90mg/dL (0.76-1.27) Estimat Glomerular Filtration Rate 94mL/min (>59) Glucose Level 160mg/dL (60-99) Calcium Level 9.0mg/dL (8.5-10.1) General: Alert, Oriented X3, Cooperative, No Acute Distress Mouth: Mucous Membr Moist/[employer] Chest & Lungs: Clear to auscultation & percussion Cardiovascular: Regular Rate/Rhythm Abdomen: Non-tender, Non-distended Extremities: No cyanosis/clubbing/edma bilat Neurological: Grossly Neurologically Intact Discharge Medications Discharge Medications Cephalexin (Keflex) 500 Mg Capsule 500 MG PO BID Prescribed by: OLIVER BRO DO Cholecalciferol (Vitamin D3) (Vitamin D3) 1,000 Unit Tab.chew 1,000 UNIT PO BID (Reported) Lisinopril (Lisinopril) 40 Mg Tablet 40 MG PO DAILY (Reported) As needed Hydrocodone-Acetaminophen 5-325 mg (Hydrocodone-Acetaminophen 5-325 mg) 1 Each Tablet 1-2 TABLET PO Q6H PRN PRN For Pain Prescribed by: DAMIAN JEREZ MD Ondansetron (Zofran) 4 Mg Tablet 4 MG PO Q4H PRN PRN For Nausea Prescribed by: OLIVER BOURGEOIS DO Sumatriptan (Imitrex) 25 Mg Tablet 50 MG PO PRN PRN PRN Headache (Reported) Sumatriptan Succinate (Imitrex) 4 Mg/0.5 Ml Pen.injctr 4 MG SQ PRN PRN PRN For Headache (Reported) MR X1 Tramadol (Ultram) 50 Mg Tablet 50 MG PO Q6 PRN PRN For Mild Pain Prescribed by: IRVING VOSS MD Followup Plan Disposition: Home in stable medical condition. Discharge Diet: No restrictions Discharge Activity: No restrictions Follow-up Provider: Aranza Durham MD Follow-up with PCP in: 1 week Provider: Aranza Durham MD Time spent 45 minutes copies to: Aranza Durham MD Vital Signs Vital Sign - Last Date Time Temp Pulse Resp B/P Pulse Ox O2 Delivery O2 Flow Rate FiO2 03/24/17 10:33 CPAP/BIPAP 03/24/17 04:08 36.6 65 18 113/70 98 Intake and Output 03/23/17 03/23/17 03/24/17 Cumulative From/Thru 15:00 23:00 07:00 03/22/17 10:03 - 03/24/17 05:26 Intake Total 2176 ml 550 ml 5275 ml Output Total 3075 ml 1825 ml 7330 ml Balance -899 ml -1275 ml -2055 ml Intake Oral 1200 ml 550 ml 2590 ml IV Total 976 ml 2685 ml Output Urine Total 3075 ml 1825 ml 7330 ml # Voids 5 # Bowel Movements 0 0 Lab and Diagnostics Result Diagram: 03/24/17 0845 03/24/17 0845 Oliver Bro DO Mar 24, 2017 12:26
[2017-03-24] MEDS ORDERED: CEPH-512 PO (12:28)
--- NOTE | 2017-03-24 12:29 | PCM.DIMED ---
Discharge Instructions Date of Service Mar 24, 2017 Dates of Hospitalization March 22, 2017 at 12:29 Discharge Diagnosis Discharge Diagnosis # UTI, Recurrent # Complex renal cysts # Hypertension Diet Discharge Diet: No restrictions Activity Discharge Activity: No restrictions Call your provider Call your provider for: Fever or Chills Patient Instructions Patient Instructions - Complete antibiotic course as prescribed - Follow up with Urologist in addition to PCP to discuss possible issues with urinary retention causing recurrent urine infection. Follow-up Provider: Aranza Durham MD Follow-up with PCP in: 1 week Provider: Aranza Durham MD, Benjamin P DO Mar 24, 2017 12:29
--- NOTE | 2017-03-24 12:47 | NUR ---
Social Work: Discharge Data: Pt is on day 2 of hospitalization. EMR reviewed. D/C orders are in. Pt discussed in rounds. No d/c planning needs at this time. states pt will d/c home on PO ABX. No further BULK LOADER needs. BULK LOADER will continue to follow if needs arise. Assessment: Pt who is independent at baseline. Plan: Pt will d/c home via POV today. No further BULK LOADER needs. BULK LOADER will continue to follow if needs arise. LIZETH Seals
[2017-03-24 13:00] VITALS: BP 156/90; PULSE 77; RESP 18; O2SAT 95
--- NOTE | 2017-03-24 14:34 | NUR ---
Discharge Pt d/c home with around 1415. VSS. IV d/c prior to leaving. Pt denied having pain. All personal belongings left with pt. Discharge teaching provided, pt denied having questions. Stated to have a f/u with Urology scheduled already.
== END 2017-03-24 14:03 | disposition home or self-care (01) | DRG 699 ==
LOC: SED 10:00 → MPC 12:29
PROVIDERS: ADMIT Internal Medicine; ATTEND Internal Medicine
DX: N28.1 Cyst of kidney, acquired (principal); N39.0 Urinary tract infection, site not specified; I10 Essential (primary) hypertension; G43.909 Migraine, unspecified, not intractable, without status migrainosus